=== PATIENT | male | born 1970 | race Caucasian/White ===

== ENCOUNTER 2020-05-15 12:24 | Outpatient (CLI) | payer OTHER ==
[~2020-05-15 12:24] MED LIST: CIPRO500 MG PO; FLAGYL500MG PO; INTESTINEX680 MG PO; ZANTAC150 MG PO
== END 2020-05-15 15:16 | disposition home or self-care (01) ==
LOC: LAB 12:24
DX: R05 Cough (principal); Z03.818 Encounter for observation for suspected exposure to other biological agents ruled out; R50.9 Fever, unspecified; R06.02 Shortness of breath; Z20.828 Contact with and (suspected) exposure to other viral communicable diseases

== ENCOUNTER 2021-02-04 10:00 | Outpatient (CLI) | payer OTHER | END 2021-02-04 10:15 | disposition home or self-care (01) | LOC: PPH VACUNA 10:00 | PROVIDERS: ATTEND Emergency Medicine Pediatric Emergency Medicine | DX: Z23 Encounter for immunization (principal) ==